=== PATIENT | male | born 1955 | race Caucasian/White ===

== ENCOUNTER → 2018-08-28 | Outpatient (CLI) | payer BC ==
[2018-08-28 18:13] LABS: LDL Cholesterol,Calculated 55.8 mg/dL (0.0-131.0); VLDL Calculation 53.2 mg/dL (5.00-40.00)
== END | disposition home or self-care (01) ==
LOC: LABWHC1 12:20
PROVIDERS: ATTEND Internal Medicine Interventional Cardiology
DX: E78.2 Mixed hyperlipidemia (principal)
CPT/HCPCS: 36415; 80061; 84450; 84460

== ENCOUNTER 2021-05-29 21:52 | Emergency (ER) | payer BC, MEDICARE ==
--- NOTE | 2021-05-29 23:10 | XR ---
EXAMINATION TYPE: XR chest 2V DATE OF EXAM: 05/29/2021 COMPARISON: 12/19/2011 HISTORY: Short of breath TECHNIQUE: FINDINGS: There is some patchy interstitial and airspace infiltrate in the left lung mainly in the li ngula left upper lobe. The right lung is clear. There is no heart failure. Heart size is normal. Bony thorax is intact. IMPRESSION: There is left-sided pneumonia which appears new compared to old exam.
--- NOTE | 2021-05-30 01:09 | ED ---
SOB HPI - General Chief Complaint: Shortness of Breath Stated Complaint: Covid+,YARI Time Seen by Provider: 05/30/21 00:41 Source: patient, family, RN notes reviewed Mode of arrival: ambulatory Limitations: no limitations - History of Present Illness Initial Comments: Patient is a 65-year-old male that presents to the emergency room complaining of shortness of breath. He notes he is Covid-positive since . He notes that he did start ivermectin per his primary care. Patient was otherwise well- appearing in bed in no apparent distress or pain. He notes that he wishes to undergo the IV monoclonal antibody infusion. He denied any chest pain headache nausea vomiting diarrhea constipation fever fatigue chills. - Related Data Allergies Allergy/AdvReac Type Severity Reaction Status Date / Time No Known Allergies Allergy Verified 05/29/21 22:47 Review of Systems ROS Statement: Those systems with pertinent positive or pertinent negative responses have been documented in the HPI. ROS Other: All systems not noted in ROS Statement are negative. Past Medical History Past Medical History: Diabetes Mellitus, Hypertension History of Any Multi-Drug Resistant Organisms: None Reported Past Surgical History: No Surgical Hx Reported Past Psychological History: No Psychological Hx Reported Smoking Status: Former smoker Past Alcohol Use History: Occasional Past Drug Use History: None Reported General Exam Limitations: no limitations General appearance: alert, in no apparent distress Head exam: Present: atraumatic, normocephalic, normal inspection Eye exam: Present: normal appearance, PERRL, EOMI. Absent: scleral icterus, conjunctival injection, periorbital swelling ENT exam: Present: normal exam, mucous membranes moist Neck exam: Present: normal inspection Respiratory exam: Present: normal lung sounds bilaterally. Absent: respiratory distress, wheezes, rales, rhonchi, stridor Cardiovascular Exam: Present: regular rate, normal rhythm, normal heart sounds. Absent: systolic murmur, diastolic murmur, rubs, gallop, clicks Extremities exam: Present: normal inspection, full ROM, normal capillary refill. Absent: tenderness, pedal edema, joint swelling, calf tenderness Neurological exam: Present: alert, oriented X3 Psychiatric exam: Present: normal affect, normal mood Skin exam: Present: warm, dry, intact, normal color. Absent: rash Course Vital Signs 05/29/21 22:41 Temperature 98.6 F Pulse Rate 102 H Respiratory 24 Rate Blood Pressure 133/89 O2 Sat by Pulse 93 L Oximetry Medical Decision Making - Medical Decision Making 65-year-old male that Covid-positive complaining of shortness of breath. Vital signs are stable, oxygen saturation on room air is 93-94%. Patient wishes to undergo monoclonal antibiotic infusion. He does meet criteria given his age. Patient is remote discharge home after IV infusion. Case with Dr. Botello outpatient discharge home with follow-up to primary care. - Radiology Data Radiology results: report reviewed, image reviewed Chest x-ray: There is left-sided pneumonia which appears new compared to old exam. Disposition Clinical Impression: COVID, Pneumonia due to COVID-19 virus Disposition: HOME SELF-CARE Condition: Stable Instructions (If sedation given, give patient instructions): Coronavirus Disease 2019 (COVID-19) Additional Instructions: Please return to the Emergency Department if symptoms worsen or any other concerns. Follow-up with primary care 1-2 days. Quarantine per CDC guidelines. Continue take Tylenol Motrin alternating with 3 hours as needed for fevers. Increase oral fluids. Get any rest. Is patient prescribed a controlled substance at d/c from ED?: No Referrals: Angel Huizar MD [Primary Care Provider] - 1-2 days Time of Disposition: 01:09
[2021-05-30] MEDS ORDERED: SODIUM CHLORIDE 0.9% 50 ML IVPB ONE (01:15)
[2021-05-30] MEDS ORDERED: CASIRIVIMAB (REGN10933) (EUA) 600 MG, IMDEVIMAB (REGN10987) (EUA) 600 MG in SODIUM CHLO... IVPB ONE (01:15)
[2021-05-30 03:05] VITALS: BP 146/79; PULSE 79; RESP 22; TEMP 98.7
== END 2021-05-30 03:05 | disposition home or self-care (01) ==
LOC: EC 21:52
DX: U07.1 COVID-19 (principal); J12.82 Pneumonia due to coronavirus disease 2019; E11.9 Type 2 diabetes mellitus without complications; I10 Essential (primary) hypertension; Z87.891 Personal history of nicotine dependence
CPT/HCPCS: 71046; 96365; 99284

== ENCOUNTER → 2023-08-28 | Outpatient (CLI) | payer MEDICARE ==
[2023-08-28 20:32] LABS: HCT 53.7 % (39.6-50.0); HGB 18.7 g/dL (13.0-17.0); MCH 32.8 pg (27.0-32.0); MCHC 34.8 g/dL (32.0-37.0); MCV 94.2 FL (80.0-97.0); Mean Platelet Volume 12.9 FL (9.5-12.2); NRBC Per 100 WBC 0 X 10*3/uL (0.00-0.01); Platelet Count 179 X 10*3/uL (140-440); RDW 11.9 % (11.5-14.5); WBC 10.16 X 10*3/uL (4.50-10.00)
[2023-08-28 21:06] LABS: Blood Urea Nitrogen 20.1 mg/dL (9.0-27.0); Calcium 9.8 mg/dL (8.7-10.3); Carbon Dioxide 24.7 mmol/L (21.6-31.8); Chloride 101 mmol/L (96-109); Glucose 162 mg/dL (70-110); Potassium 3.9 mmol/L (3.5-5.5); Sodium 140 mmol/L (135-145); T4, Free (Free Thyroxine) 2.19 ng/dL (0.80-1.80)
== END | disposition home or self-care (01) ==
LOC: LABWHC1 15:16
PROVIDERS: ATTEND Internal Medicine Interventional Cardiology
DX: R00.1 Bradycardia, unspecified (principal)
CPT/HCPCS: 36415; 80048; 84439; 84443; 85027

== ENCOUNTER 2024-01-15 13:55 | Day surgery (SDC) | payer MEDICARE ==
[~2024-01-15 13:55] MED LIST: SODIUM CHLORIDE 0.9% 1,000 ML IV SCH
[2024-01-15 14:26] VITALS: BP 216/108; PULSE 70; RESP 18; TEMP 98
[2024-01-15] MEDS ORDERED: LIDOCAINE 1% INJ 10MG/ML (20 ML MDV) ONE (15:07)
[2024-01-15] MEDS: SODIUM CHLORIDE 0.9% 500 ML 450 ML IV ONE (15:15)
[2024-01-15] MEDS: LIDOCAINE 1% INJ 10MG/ML (20 ML MDV) SQ ONE (15:42)
--- NOTE | 2024-01-15 15:56 | P.EPPROC ---
- EP Procedure Note Electrophysiology Procedure Note: Loop monitor implant Primary physicians: Dr. Huizar Senior Ecologist: Dr. Lopez Indication: Recurrent dizzy spells, episode of loss of consciousness after swallowing a bubbly drink. Mildly prolonged MO interval at baseline, episode of loss of consciousness while taking a shower, known coronary disease status post coronary stenting Intermittent complete heart block on beta-blockers which have been discontinued since then. Loop monitor being implanted to evaluate for sudden bradycardia and pauses associated with presyncopal spells/syncope Patient was brought to the EP lab in a fasting state. Written informed consent was obtained prior to the procedure. The left pectoral area was prepped and draped per protocol. Intravenous antibiotic was administered preoperatively. A subcutaneous Loop monitor was implanted successfully and the wound was closed per protocol. The device was programmed to detect significant wyatt- arrhythmic and tachy-arrhythmic events, per protocol. Device and programming details: Bradycardia protocol
== END 2024-01-15 16:16 | disposition home or self-care (01) ==
LOC: CATHEP 13:55
PROVIDERS: ATTEND Internal Medicine Clinical Cardiac Electrophysiology
DX: R55 Syncope and collapse (principal); I44.2 Atrioventricular block, complete; I25.10 Atherosclerotic heart disease of native coronary artery without angina pectoris; Z95.5 Presence of coronary angioplasty implant and graft; I65.29 Occlusion and stenosis of unspecified carotid artery; I10 Essential (primary) hypertension; E11.69 Type 2 diabetes mellitus with other specified complication; E78.5 Hyperlipidemia, unspecified; Z82.49 Family history of ischemic heart disease and other diseases of the circulatory system; F17.210 Nicotine dependence, cigarettes, uncomplicated; Z79.82 Long term (current) use of aspirin; Z79.84 Long term (current) use of oral hypoglycemic drugs; Z79.890 Hormone replacement therapy; Z79.899 Other long term (current) drug therapy; Z79.52 Long term (current) use of systemic steroids; Z79.01 Long term (current) use of anticoagulants
CPT/HCPCS: 33285; J0690; J2001

== ENCOUNTER → 2024-11-20 | Outpatient (CLI) | payer MEDICARE ==
[2024-11-20 09:37] LABS: African American GFR (CKD) >90 (>60 ml/min/1.73 sqM); Blood Urea Nitrogen 13 mg/dL (9-20); Non-African American GFR(CKD) >90 (>60 ml/min/1.73 sqM)
--- NOTE | 2024-11-20 10:37 | CT ---
EXAMINATION TYPE: CT angio chest CT DLP: 925.6 mGycm, Automated exposure control for dose reduction was used. 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 3D reconstructed images are created on an independent workstation and reviewed. FINDINGS: Pulmonary Artery: There is no evidence for a filling defect within the pulmonary vasculature to sugge st acute pulmonary embolism. The pulmonary artery is of normal size. Lungs/Pleura: No evidence of focal consolidation, pleural effusion or pneumothorax. Linear atelectasi s within the bilateral lung bases. No suspicious pulmonary nodule or mass Airway: Large airways are patent. Heart: Size within normal limits.No pericardial effusion. Mild coronary artery calcifications present . Vasculature: No evidence of intramural hematoma or dissection. Mild atherosclerotic calcification of the aortic arch. Conventional three-vessel aortic arch. No thoracic aortic aneurysm. The aortic root measures up to 3.6 cm. The ascending thoracic aorta measures up to 3.7 cm. The descending thoracic ao rta measures up to 2.6 cm. No evidence of pulmonary embolism. No pulmonary artery dilatation. Mediastinum: No evidence of adenopathy. Musculoskeletal: No acute osseous abnormalities Soft Tissues: Anterior left chest wall loop recorder. Small bilateral gynecomastia. Lower neck: No significant findings. Upper Abdomen: The gallbladder is surgical absent. Partial visualization of left superior pole 5.8 cm cyst. Additional partially visualized bilateral renal simple cysts. No follow-up recommended. IMPRESSION: No evidence of thoracic aortic aneurysm with the ascending thoracic aorta measuring up to 3.7 cm. No evidence for intramural hematoma or dissection. [facility], , 11/20/2024 10:35 AM
== END | disposition home or self-care (01) ==
LOC: RADCTMAIN 08:43
PROVIDERS: ATTEND Internal Medicine Interventional Cardiology
DX: I71.20 Thoracic aortic aneurysm, without rupture, unspecified (principal)
CPT/HCPCS: 82565; 84520; 71275; 36415; Q9967